=== PATIENT | female | born 1980 | race African-American/Black ===

== ENCOUNTER 2018-08-20 15:40 | Emergency (ER) | payer MEDICAID ==
[~2018-08-20] VITALS: Ht 170.2 cm; Wt 65.9 kg
[2018-08-20] MEDS ORDERED: LORA0.5T2 PO (16:00)
[2018-08-20] MEDS ORDERED: OMEP10 PO (16:00)
[2018-08-20] MEDS ORDERED: ACETAMINOPHEN 500 MG TABLET PO ONE (16:45)
[2018-08-20] MEDS ORDERED: LORazepam 1 MG TABLET PO ONE (16:45)
[2018-08-20 17:39] VITALS: BP 113/83
== END 2018-08-20 18:28 | disposition home or self-care (01) ==
LOC: EMS 15:41
DX: F41.9 Anxiety disorder, unspecified (principal); F19.90 Other psychoactive substance use, unspecified, uncomplicated

== ENCOUNTER 2018-08-26 01:36 | Emergency (ER) | payer MEDICAID ==
[~2018-08-26] VITALS: Ht 167.6 cm; Wt 81.8 kg
[~2018-08-26 01:36] MED LIST: LORA0.5T2 PO; OMEP10 PO
[2018-08-26] MEDS ORDERED: LORazepam 1 MG TABLET PO ONE (04:15)
[2018-08-26] MEDS ORDERED: KETOROLAC TROMETHAMINE 30 MG/ML VIAL IM ONE (04:15)
[2018-08-26 06:10] VITALS: BP 105/61
== END 2018-08-26 06:33 | disposition home or self-care (01) ==
LOC: EMS 01:37
DX: R51 Headache (principal); F41.9 Anxiety disorder, unspecified; M54.2 Cervicalgia; F13.10 Sedative, hypnotic or anxiolytic abuse, uncomplicated; Z76.5 Malingerer [conscious simulation]
CPT/HCPCS: 99283; J1885